=== PATIENT | male | born 1955 | race Caucasian/White ===

== ENCOUNTER 2019-12-11 17:03 | Inpatient (IN) | payer SELFPAY ==
[2019-12-11 18:25] LABS: CKMB 0.7 ng/mL (0-6.6)
[2019-12-11 22:08] LABS: Troponin I 0.321 ng/mL (< 0.028)
[2019-12-11] MEDS ORDERED: Ondansetron ODT 4 MG TAB SL PRN (23:03)
[2019-12-11] MEDS ORDERED: Ondansetron PF 4 MG/2 ML Vial IVP PRN (23:03)
[2019-12-11] MEDS ORDERED: Acetaminophen 325 MG TAB PO PRN (23:03)
[2019-12-11 23:12] VITALS: BMI 21.2
[2019-12-12 01:36] LABS: Troponin I 0.338 ng/mL (< 0.028)
[2019-12-12] MEDS ORDERED: Nitroglycerin 0.4 MG TAB (25 Tab Bottle) SL PRN ×2 (04:49→14:03)
--- NOTE | 2019-12-12 04:59 | PDOC.HHP ---
Hospitalist HPI - History of Present Illness Chest pain History of Present Illness: Patient presenting with complaints of chest pain for the last 5 days. Says he initially noticed it after eating. [place] as if he had a pressure in the center of his chest. Denies any regurgitation of food but felt discomfort when he would swallow certain things. This did not happen always but occasionally, even when drinking water. Denies any vomiting. He states he tried taking tums and advil for the discomfort. Has a history of GI bleed in the past and thought it was associated with stomach ulcers. He then noted an episode of central chest pain while he was playing a game on his phone. He states it quickly eased on its own. Denies any associated diaphoresis, shortness of breath, nausea or vomiting. More recently he has noted central chest discomfort in the substernal region that has been exacerbated with exertion. It is nonradiating. No other associated symptoms. He has not had any cardiac work-up or procedures in the past. He does smoke excessively, states if he runs out of cigarettes he will smoke his cigarette butts. Denies any hemoptysis. No lower leg swelling or calf pain/tenderness. He has otherwise felt completely well in himself. ED Course: Initially seen at [facility] ER. EKG showed possible ST depression (inferior/lateral leads). He was given Aspirin 325 mg, Lovenox 1 mg/kg and Nitrobid 1 inch. Transferred here for NSTEMI and on arrival had a repeat EKG showing normal ST segments/Twaves. Trop 0.290, repeat was 0.321. Discussed with Dr. Norton who advised discussion with Cardiology given ST changes seen on initial EKG at outside ER. Patient transferred to Tele floor for cardiac monitoring. Has been pain free since arrival. CXR done at [facility] ER was unremarkable. Hospitalist ROS - Review of Systems Constitutional: denies: fever, chills, sweats, weakness, malaise, other Eyes: denies: pain, vision change, conjunctivae inflammation, eyelid inflammation, redness, other ENT: denies: ear pain, ear discharge, nose pain, nose discharge, nose congestion , mouth pain, mouth swelling, throat pain, throat swelling, other Respiratory: denies: cough, dry, shortness of breath, hemoptysis, SOB with excertion, pleuritic pain, sputum, wheezing, other Cardiovascular: reports: chest pain. denies: palpitations, orthopnea, paroxysmal noc. dyspnea, edema, light headedness, other Gastrointestinal: reports: other (odynophagia/dysphagia, occasional). denies: nausea, vomiting, abdominal pain, diarrhea, constipation, melena, hematochezia Genitourinary: denies: dysuria, frequency, incontinence, hematuria, retention, other Musculoskeletal: denies: neck pain, shoulder pain, arm pain, back pain, hand pain, leg pain, foot pain, other Skin: denies: rash, lesions, yo, bruising, other Neurological: denies: weakness, numbness, incoordination, change in speech, confusion, seizures, other - Medication Medications: ALLERGIES: No known drug allergies. CURRENT MEDICATIONS: None. Hospitalist History - Past Medical History Source: patient Gastrointestinal: reports: GI bleed (7 years ago due to bleeding gastric ulcer) Musculoskeletal: reports: Other (Congenital pectus excavatum) - Past Surgical History Past Surgical History: reports: no pertinent history - Family History Family History: reports: no pertinent history - Social History Smoking Status: Current every day smoker Alcohol: reports: None Drugs: reports: marijuana (occasional) Activity level: independent ambulation - Exam General Appearance: NAD Eye: PERRL, anicteric sclera ENT: normocephalic atraumatic, no oropharyngeal lesions, moist mucosa Neck: supple, symmetric, no lymphadenopathy Heart: RRR, no gallops, no rubs, normal peripheral pulses Heart - other findings: concave chest, no tenderness to palpation Respiratory: CTAB, no wheezes, no rales, no ronchi Gastrointestinal: soft, non-tender, non-distended, normal bowel sounds, no palpable masses, no guarding, no rigidity Extremities: no edema Skin: normal turgor, no lesions, no rashes Neurological: cranial nerve grossly intact, no focal deficits Musculoskeletal: normal tone, normal strength, no muscle wasting Psychiatric: normal affect, normal behavior, A&O x 3 Hospitalist Results - Labs Lab results: CK-MB (CK-2) 0.7 ng/mL (0-6.6) 12/11/19 17:34 Troponin I 0.338 ng/mL (< 0.028) H* 12/12/19 00:31 - Radiology Interpretation Chest x-ray Status: report reviewed by me Hospitalist H&P A/P - Problem (1) NSTEMI (non-ST elevated myocardial infarction) Code(s): I21.4 - NON-ST ELEVATION (NSTEMI) MYOCARDIAL INFARCTION Status: Acute (2) Chest pain Code(s): R07.9 - CHEST PAIN, UNSPECIFIED Status: Resolved (3) Odynophagia Code(s): R13.10 - DYSPHAGIA, UNSPECIFIED Status: Resolved (4) Tobacco abuse Code(s): Z72.0 - TOBACCO USE Status: Chronic (5) Pectus excavatum Code(s): Q67.6 - PECTUS EXCAVATUM Status: Chronic - Plan Plan: Continue cardiac monitoring. Trend troponins. Cardiology consult placed. Echo ordered. Continue Lovenox. Monitor H/H, given history of gastric ulcers/GI bleed. Day team to decide of GI consult indicated re: odynophagia/dysphagia. GI Prophylaxis with Famotidine. DVT prophylaxis with mechanical SCDs. CODE STATUS FULL Surrogate decision maker: His Piedad Pool. Case discussed with attending who agrees with plan as above.
[2019-12-12] MEDS ORDERED: Sodium Chloride 0.9% 1,000 ML IV SCH ×2 (05:00→10:15)
[2019-12-12 07:18] LABS: CKMB 0.7 ng/mL (0-6.6)
[2019-12-12] MEDS ORDERED: Aspirin 325 mg Enteric Coated Tablet PO SCH (09:00)
[2019-12-12] MEDS ORDERED: Enoxaparin Sodium 60 MG/0.6 ML SYRINGE SC SCH (09:00)
[2019-12-12] MEDS: Famotidine/PF 20 mg/2ml Vial SLOW IVP SCH ×2 (09:20→20:02)
[2019-12-12] MEDS ORDERED: Iopamidol 370 76% 100 ML VIAL ONE (10:01)
[2019-12-12] MEDS ORDERED: Communication Order-Pharmacy FS SCH (10:15)
[2019-12-12] MEDS ORDERED: Midazolam HCl 2 mg/2 ml Vial ONE (13:03)
[2019-12-12] MEDS ORDERED: Fentanyl 100 MCG/2 ML VIAL ONE (13:03)
[2019-12-12] MEDS ORDERED: Acetaminophen/Codeine 30-300mg Tablet PO PRN ×2 (14:03)
[2019-12-12] MEDS ORDERED: Sodium Chloride 0.9% 200 ML IV PRN (14:03)
--- NOTE | 2019-12-12 16:26 | PRG ---
DATE OF SERVICE: 12/12/2019 Mr. Pool underwent cardiac catheterization today. He was found to have diffuse atherosclerosis, multivessel coronary artery disease. The surgeons were consulted, but unfortunately the patient is not thought to be a candidate to have an operation here due to this severe pectus excavatum. We will treat him with dual anti-platelet therapy, statin, nitrates, beta-blockers. He wishes to be further evaluated as an outpatient at the [place] [facility]. He tentatively will go home in 1 to 2 days. Job ID: [id number]
--- NOTE | 2019-12-12 18:27 | CON ---
DATE OF CONSULTATION: 12/12/2019 REASON FOR CONSULTATION: Non-ST elevation myocardial infarction. HISTORY OF PRESENT ILLNESS: Mr. Pool is a 64-year-old man. He has been having chest pain and pressure. He notes that mostly he has been getting it when he tries to play a video game. He says during certain parts of the video game, it is rather exciting and he gets pressure in his chest. He went to the emergency room yesterday because he had more of the chest tightness, found to have increased troponin and referred here. The patient has been having this pain and pressure for about for 4 to 5 days. He otherwise had been doing well. He quit smoking about 5 days ago. REVIEW OF SYSTEMS: CONSTITUTIONAL: No significant weight gain or loss. VISION: No changes. HEARING: No changes. PULMONARY: No cough or wheezing. GASTROINTESTINAL: No nausea, vomiting, or diarrhea. SKIN: No rashes. NEUROLOGIC: No unilateral weakness or numbness. PSYCHIATRIC: No unusual depression or anxiety. PHYSICAL EXAMINATION: GENERAL: A thin 64-year-old man. He is 5 feet and 6 inches tall, 130 pounds. NECK: Veins normal. Carotid, normal upstrokes. LUNGS: Clear. CARDIAC: Normal S1, normal S2. ABDOMEN: Soft and nontender. EXTREMITIES: Warm and dry. No clubbing. No cyanosis. There is no edema. Peripheral pulses are present. PERTINENT LABORATORY DATA: The troponin level of 0.372. EKG shows no acute changes. ASSESSMENT: Status post non-ST elevation myocardial infarction. PLAN: Recommend proceeding to cardiac catheterization lab. Discussed risk of stroke, heart attack, iodine allergy, loss of blood supply to leg or kidney, stent thrombosis, stent restenosis, all discussed. The patient understands and wishes to proceed. Job ID: [id number]
--- NOTE | 2019-12-12 19:23 | CON ---
DATE OF CONSULTATION: HISTORY OF PRESENT ILLNESS: This is a 64-year-old gentleman with essentially no prior medical care. He does relate a history of a bleeding ulcer treated in [place], [place] about 6 years ago, and that has been the extent of his encounters with medical radiation tech. Over the past week, he has been noticing chest pain, sometimes aggravated by playing video games, which he does most of the day from his couch. He reports very little physical activity, but does relate that he had to walk somewhere several months ago and did notice his right buttock bothering him. He was noted to have an elevated troponin in the [place] ER, and transferred here where a cardiac catheterization was done today after cardiac echo showed relatively preserved left ventricular systolic function with mild anterior hypokinesis. His cardiac cath showed multivessel disease with a small vessel. He had a high-grade lesion, PDA, and some moderate disease in posterolateral branch, both of which could be grafted. They faintly really visualized a very small string like LAD that filled from both right and left-sided injections with LAD being subtotal in filling slowly from the left. There were two diagonal branches, more proximal of which may be a target for grafting. The circumflex consisted of 3 OM. The first of which is large enough to graft. The second which is rather small distally where would be accessible. The third probably does not exit the groove far enough to be bypassed. They each have lesions. Anterior wall function was relatively well preserved, certainly viable. The MELENDEZ was patent. 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 PAST MEDICAL HISTORY: Negative for hypertension, diabetes, or dyslipidemia. SOCIAL HISTORY: Smoking history of 2 packs a day. He is . He has 3 adult children. As mentioned, he states he spends most of his day on the couch, playing video games. REVIEW OF SYSTEMS: The patient notes occasional wheezing, but denies shortness of breath or cough. He has not had chest pain until the last week. He has no history of previous TIA or stroke. Apart from the single episode of right buttock claudication, he denies claudication. He has no GI complaints since his bleeding ulcer. PHYSICAL EXAMINATION: GENERAL: He is alert, cooperative gentleman, unshaven, pleasant. NECK: No carotid bruits. LUNGS: Clear to auscultation. No wheezes. He has rather severe pectus excavatum with his sternum inferiorly approaching his thoracic spine. ABDOMEN: His abdomen apart from the deformity from the pectus is soft and nontender. EXTREMITIES: He has a palpable left femoral pulse, and I do not palpate any pedal pulses. He is right arm dominant, and he has an equivocal Oli's test. ASSESSMENT AND PLAN: The patient's cardiac anatomy could be improved with graft to the posterior descending artery, posterolateral obtuse marginal, diagonal, and possibly left anterior descending artery in its midportion, although I am not sure that this has a distal vessel that could be accessed. Unfortunately, this is so severe that access through sternotomy without pectus repair is probably not feasible, and access through a left thoracotomy is probably not ideal for multiple graftings and small vessels. I suspect that he would need some sort of combined pectus repair to allow approach to his coronary anatomy, and I think he would probably be better served at the [facility] for this approach, and I have discussed this with him. Job ID: [id number]
[2019-12-12] MEDS ORDERED: Rosuvastatin 20 MG TAB PO SCH (21:00)
[2019-12-13] MEDS ORDERED: Aspirin 81 mg Enteric Coated Tablet PO SCH (09:00)
[2019-12-13 09:10] VITALS: BP 122/63; TEMP 96.8
[2019-12-13] MEDS: Famotidine/PF 20 mg/2ml Vial SLOW IVP SCH (09:26)
--- NOTE | 2019-12-14 00:54 | DIS ---
DATE OF ADMISSION: 12/11/2019 DATE OF DISCHARGE: 12/13/2019 HOSPITAL COURSE: Mr. Pool is a 64-year-old male with a medical history of bleeding gastric ulcer 7 years ago, congenital pectus excavatum, who presents with chest pain and pressure. He was diagnosed with NSTEMI. He underwent a left heart catheterization that showed diffuse multivessel coronary artery disease. CT Surgery was consulted, but deemed the patient not to be a candidate for surgery due to severe pectus excavatum. He was treated medically with dual anti-platelet therapy, statin, nitrates, and beta blockers per Cardiology and [facility] The patient left [facility] on December 12 before the flex o writer operator of this note could perform a physical exam or provide the patient with his discharge papers; however, the patient did acknowledge to the nurse that he was going to [facility]nd [facility] as soon as possible. Job ID: [id number]
[2019-12-14] MEDS ORDERED: Clopidogrel Bisulfate 75 MG TAB PO SCH (09:00)
== END 2019-12-13 09:20 | disposition left against medical advice (07) | DRG 282 ==
LOC: ERS 17:03 → 2NO 23:06
PROVIDERS: ADMIT Internal Medicine; ATTEND Internal Medicine
PROC: 4A023N7 Measurement of Cardiac Sampling and Pressure, Left Heart, Percutaneous Approach (ICD-10-PCS; principal; 2019-12-12)
PROC: B2111ZZ Fluoroscopy of Multiple Coronary Arteries using Low Osmolar Contrast (ICD-10-PCS; 2019-12-12)
DX: I21.4 Non-ST elevation (NSTEMI) myocardial infarction (principal); I25.10 Atherosclerotic heart disease of native coronary artery without angina pectoris; Q67.6 Pectus excavatum; R13.10 Dysphagia, unspecified; F17.210 Nicotine dependence, cigarettes, uncomplicated
CPT/HCPCS: 36415; 76942; 80061; 82553; 83880; 84443; 84484; 93005; 93306; 93458; 94760; 99152; 99153; J1644; J2250; J3010; Q9967; S0028